=== PATIENT | male | born 1965 | race Caucasian/White ===

== ENCOUNTER → 2025-04-08 | Outpatient (CLI) | payer OTHER, SELFPAY ==
--- NOTE | 2025-04-08 10:53 | RAD_ITS ---
PROCEDURE: SHOULDER MIN 2 VIEWS 04/08/2025 REASON FOR EXAM: PAIN IN RIGHT SHOULDER TECHNIQUE: SHOULDER MIN 2 VIEWS Laterality: Right COMPARISON: None RAD/Shoulder min 2 Views IMPRESSION: [id number] right acromioclavicular joint degenerative changes are seen. The right glenohumeral joint demonstrates minimal degenerative changes, without apparent joint narrowing. Satisfactory osseous alignment is seen. No fracture or dislocation is evident. Reading Location: [place] [id number]
== END | disposition home or self-care (01) ==
PROVIDERS: PCP Family Medicine; Referring Provider Nurse Practitioner Family; Visit Provider Nurse Practitioner Family
DX: M25.511 Pain in right shoulder (principal)
CPT/HCPCS: 73030